=== PATIENT | female | born 1945 | race Caucasian/White ===

== ENCOUNTER → 2019-09-07 | Outpatient (CLI) | payer BC ==
--- NOTE | 2019-09-09 15:59 | KCIC ---
BILATERAL SCREENING MAMMOGRAM, 2-D and 3-D History: Routine screening. Comparison: Bilateral mammogram 10/18/2014. Technique: Routine bilateral digital mammogram views performed. MLO and CC digital tomosynthesis (3D) images obtained with implants displaced. Radiologist reviewed these images on dedicated workstation. Findings: Breast Tissue Density A : The breasts are almost entirely fatty. There are a few benign calcifications bilaterally. There are bilateral retroglandular implants that appear to be different from the prior study implants. There are no dominant masses, suspicious microcalcifications, or architectural distortion. IMPRESSION: No mammographic evidence of malignancy. Recommend routine screening. BI-RADS category 2: Benign findings. The images were reviewed with computer-aided detection. Patient information is entered into reminder system with a target due date for the next screening mammogram. Mammography is the most sensitive method for finding small breast cancers, but it does not detect them all and is not a substitute for careful clinical examination. A negative mammogram does not negate a clinically suspicious finding and should not result in delay in biopsying a clinically suspicious abnormality. "Our facility is accredited by the [employer] Mammography Program." Electronically signed by: Cassius Aguirre MD (09/09/2019 3:56 PM) [facility]
== END | disposition home or self-care (01) ==
LOC: KCIC MAMMO 13:51
PROVIDERS: ATTEND Family Medicine
DX: Z12.31 Encounter for screening mammogram for malignant neoplasm of breast (principal); N64.89 Other specified disorders of breast
CPT/HCPCS: 77063; 77067

== ENCOUNTER → 2019-11-11 | Outpatient (CLI) | payer BC ==
[~2019-11-11] MED LIST: CHOL40003 PO; DOCU-109 PO; HYDR-2145 PO; IOHEXOL 180 MG/ML 10 ML VIAL. ONE; KRIL1CAP23 PO; LEVO25TA4 PO; LINZESS145 MCG PO; METF500T16 PO; PANT40TA77 PO; SIMV20TA18 PO; [UNRECOGNIZED DRUG - OTHER]; methylPREDNISolone ACETATE 40 MG/ML VIAL. ONE; methylPREDNISolone ACETATE 80 MG/ML VIAL. ONE
--- NOTE | 2019-11-11 14:15 | PAIN ---
DATE OF SERVICE: 11/11/2019 INITIAL CONSULTATION FOR PAIN CLINIC CHIEF COMPLAINT: Low back, bilateral lower extremity pain. HISTORY OF PRESENT ILLNESS: This is a 74-year-old female who presents with history of pain in the low back for about a year and year in a couple of months in the low back, bilateral lower extremities, which generally go away on her own with stretching and strengthening, but now has not gone away for about 2-3 months. The patient reports it is increased in the low back, bilateral lower extremities, posterior gluteus, posterior thighs, posterior calf to the ankle, some tingling in the foot more intense on the right side, but present bilaterally. The patient reports some on the right anterior groin as well. The patient describes the pain as constant, shooting, radiating to lower extremities, changes during the day, worse with activity, walking, standing, especially getting up out of a chair, burning and cramping as well as aching in the low back itself. The patient did have an MRI scan of the lumbar spine, which is showing some diffuse spondylosis with no significant disease present at the L5-S1 level with a left lateral recess and mild left-sided neural foraminal narrowing due to generalized disk bulging, eccentric towards the left with some generalized disk bulge at L3-L4 and L4-L5 as well. The patient rates disability from 0-10, 10 being the worst, is an 8 with family home responsibilities, recreation, social activity and occupation, 6 with self-care and 5 with life support activities. The patient has tried chiropractic treatment as well as doing exercise currently. She has physical therapy. The chiropractic is helping, but is not lasting very long. She has taken Advil, which also decreased pain by about 20%. The patient reports it awakens her from sleep at least 2-3 times at night, does not affect her bowel or bladder control, but does affect her ability to walk. She is not using any assistive devices to ambulate, however. The patient reports no loss of motor function, but significant fatigability in the lower extremities, especially on the right side. PAST MEDICAL HISTORY: Significant for type 2 diabetes, hypothyroidism, hypertension, hyperlipidemia, gastroesophageal reflux, irritable bowel syndrome, arthritis, osteopenia, stress incontinence. PREVIOUS SURGERIES: Include appendectomy, cholecystectomy, ankle fracture and foot fracture in 2015. CURRENT MEDICATIONS: Include levothyroxine, simvastatin, pantoprazole, hydrochlorothiazide, Linzess, metformin, probiotics, Colace, vitamins. ALLERGIES: THE PATIENT IS ALLERGIC TO FLAGYL. FAMILY HISTORY: Significant for no major medical problems or conditions that she lists. SOCIAL HISTORY: The patient does not drink alcohol, does not smoke, does not use any illegal, illicit or recreational drugs. She is single. Recently retired and lives locally in [place], [place]. 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 REVIEW OF SYSTEMS: The patient's review of systems is positive for those items mentioned in history of present illness. All systems reviewed and otherwise negative. It is complete, full and well documented on the patient's chart. PHYSICAL EXAMINATION: VITAL SIGNS: The patient's blood pressure 143/74, pulse 85, respirations 16, temperature 97.9 degrees Fahrenheit. Height is 5 feet 2 inches, weight is 194 pounds. GENERAL: The patient is awake, alert, oriented, appropriate, very pleasant demeanor. HEENT: Head shows normocephalic, atraumatic. Extraocular movements are intact and symmetrical. Oral cavity: Mucous membranes moist and pink. Dentition is intact. NECK: Shows anterior throat supple without palpable lymphadenopathy noted. Swallow reflex symmetrical. CHEST: Shows normal on inspection. Breath sounds are clear bilaterally. HEART: Shows S1, S2 clear. No murmurs auscultated. ABDOMEN: Soft, nontender, nondistended. No palpable organomegaly is noted. No rebound or guarding demonstrated. BACK: Shows spine grossly in the midline. Normal appearing thoracic kyphosis and lumbar lordotic curvature. Lumbar paraspinous muscle shows symmetrical on inspection, with palpation shows some moderate tenderness diffusely bilaterally, but only diffusely without significant radiation. The patient has good rotational motion of lumbar spine, both laterally as well as extension and flexion without significant difficulty. No tenderness over the sacrum, sacroiliac region or spinous processes with direct palpation. EXTREMITIES: Lower extremities show deep tendon reflexes at 2+ in the patellar, 1+ tendo-calcaneus tendons. Motor exam is strong with 4 on a scale 5 on the right with dorsiflexion and extension, 5/5 on the left, it is true with quadriceps and hamstring flexion as well. Peripheral pulses are 1+ posterior tibia. No peripheral edema is noted. Lower extremities are warm and dry to touch, equal in color and appearance. Straight leg raise noted to be positive on the right about 40 degrees, decreased with knee flexion, left side is negative. Gaenslen's and Cosmo's maneuvers are negative bilaterally as well. The patient is able to stand, stand on her toes without difficulty or loss of balance, walks with normal appearing gait, does not appear to favor the right or left lower extremity to a significant extent, not using any assistive devices to ambulate. IMPRESSION: 1. This is a 74-year-old female with approximately 1-year history of low back, bilateral lower extremity pain in a radicular fashion. 2. MRI scan of lumbar spine as noted. 3. Arthritis. 4. Hypertension. 5. Diabetes. 6. Hypothyroidism. PLAN: Options were discussed with the patient including conservative medical managements, continued physical therapies as well as interventional techniques and she would like to pursue interventional techniques. We discussed a lumbar epidural steroid injection using description as well as anatomical models to describe the procedure. Risks were then discussed including, but not limited to bleeding, infection, possibility of epidural hematoma, subsequent neurologic compromise, dural puncture, headaches, spinal cord and/or nerve damage, side effects of steroid medication and poor results regarding pain control. The patient understands and wished to proceed. The patient will return to clinic in approximately 2 weeks for followup. She was counseled on return appointment, activity level and side effects to be aware of. DIAGNOSES: Lumbar radiculopathy with lumbar degenerative disk disease and lumbar spondylosis. PROCEDURE: Lumbar epidural steroid injection, translaminar approach at L5-S1 level using C-arm fluoroscopic guidance under sterile prep and drape using local anesthetic. MEDICATION INJECTED: A total of 120 mg Depo-Medrol plus 10 mL of preservative-free normal saline and 2 mL of contrast. CONDITION AT DISCHARGE: Stable. The patient tolerated the procedure well, had no complications. ARANZA GRIER MD DR: KAILYN/sandy JOB#: [id number] / [id number] DOROTHY Lilly
== END ==
LOC: PNCL 09:52
PROVIDERS: ATTEND Anesthesiology
DX: M51.16 Intervertebral disc disorders with radiculopathy, lumbar region (principal); M47.816 Spondylosis without myelopathy or radiculopathy, lumbar region; E11.9 Type 2 diabetes mellitus without complications; E03.9 Hypothyroidism, unspecified; I10 Essential (primary) hypertension; E78.5 Hyperlipidemia, unspecified; K21.9 Gastro-esophageal reflux disease without esophagitis; K58.9 Irritable bowel syndrome, unspecified; Z87.39 Personal history of other diseases of the musculoskeletal system and connective tissue; Z90.49 Acquired absence of other specified parts of digestive tract; Z88.8 Allergy status to other drugs, medicaments and biological substances; Z79.84 Long term (current) use of oral hypoglycemic drugs
CPT/HCPCS: 62323; J1030; J1040; Q9965

== ENCOUNTER → 2019-11-25 | Outpatient (CLI) | payer BC ==
--- NOTE | 2019-11-25 12:59 | PAIN ---
DATE OF SERVICE: 11/25/2019 PROGRESS NOTE FOR PAIN CLINIC DIAGNOSES: Lumbar radiculopathy with lumbar degenerative disk disease and lumbar spondylosis. HISTORY OF PRESENT ILLNESS: The patient is a 74-year-old female, who returns for followup, status post lumbar epidural steroid injection x 1. The patient reports about 100% improvement with her left leg and low back, but only 30% on the right. The patient reports overall she is doing quite a bit better, increasing her activity with greater distance walking, doing household activities, traveling with greater ease and comfort in and out of a car. The patient reports still significantly improved on the left side, but the right side is still with some significant pain in the low back, posterior gluteus, posterior thigh, posterior calf with walking and standing. The patient reports it is better with sitting or lying down, generally does not awaken her from sleep. The patient reports her pain is a 9 on a scale of 10 at its worst over the past week, 6 on average, 4 at its least and is a 4 today. The patient reports it is burning and aching, but on and off in intensity and again only usually with weightbearing and walking. PHYSICAL EXAMINATION: VITAL SIGNS: The patient's blood pressure is 149/89, pulse 80, respirations 18, temperature 98.3 degrees Fahrenheit, weight is 195 pounds. GENERAL: The patient is awake, alert, oriented, appropriate, very pleasant demeanor. HEENT: Head is normocephalic, atraumatic. Extraocular movements are intact and symmetrical. Oral cavity: Mucous membranes moist and pink. Dentition is intact. NECK: Shows anterior throat supple without palpable lymphadenopathy noted. Swallow reflex symmetrical. CHEST: Shows normal on inspection. Breath sounds are clear to auscultation bilaterally. HEART: Shows S1, S2 clear. No murmurs auscultated. ABDOMEN: Soft, nontender, nondistended. No palpable organomegaly is noted. No rebound or guarding demonstrated. BACK: Shows spine grossly in the midline. Normal-appearing thoracic kyphosis and minor flattening of lumbar lordotic curvature. Lumbar paraspinous muscle shows symmetrical on inspection, with palpation shows some moderate tenderness diffusely bilaterally, going diffusely without significant radiation. The patient shows good rotational motion of lumbar spine, both laterally as well as extension and flexion without significant pain as well. EXTREMITIES: Lower extremities show deep tendon reflexes 2+ in the patellar and 1+ tendo-calcaneus tendons. Motor exam is approximately 4 on a scale of 5 on the right and 5/5 on the left. Peripheral pulses are 1+ posterior tibia. No peripheral edema is noted bilaterally. Options were discussed with the patient. The patient's old chart was reviewed as her current medication regimen updated. Current review of systems updated today as well. We will proceed with a second in a series of lumbar epidural steroid injection today with fluoroscopic guidance. Risks were again discussed including but not limited to bleeding, infection, possibility of epidural hematoma, subsequent neurological compromise, dural puncture, headaches, spinal cord and/or nerve damage, side effects of steroid medication and poor results regarding pain control. The patient understands and wished to proceed. The patient will return to the clinic in approximately 2 weeks for followup. She was counseled on return appointment, activity level and side effects to be aware of. DIAGNOSES: Lumbar radiculopathy with lumbar degenerative disk disease and lumbar spondylosis. PROCEDURE: Lumbar epidural steroid injection, translaminar approach at the L5-S1 level using C-arm fluoroscopic guidance under sterile prep and drape using local anesthetic. MEDICATION INJECTED: A total of 120 mg Depo-Medrol plus 10 mL of preservative-free normal saline and 2 mL of contrast. CONDITION AT DISCHARGE: Stable. The patient tolerated procedure well, had no complications. ARANZA GRIER MD DR: KAILYN/sandy JOB#: [id number] / [id number]
== END | disposition home or self-care (01) ==
LOC: PNCL 11:12
PROVIDERS: ATTEND Anesthesiology
DX: M51.16 Intervertebral disc disorders with radiculopathy, lumbar region (principal); M47.26 Other spondylosis with radiculopathy, lumbar region; Z98.890 Other specified postprocedural states; Z88.8 Allergy status to other drugs, medicaments and biological substances
CPT/HCPCS: 62323; J1030; J1040; Q9965

== ENCOUNTER → 2020-01-04 | Outpatient (CLI) | payer BC ==
--- NOTE | 2020-01-04 13:44 | PAIN ---
DATE OF SERVICE: 01/04/2020 PROGRESS NOTE FOR PAIN CLINIC DIAGNOSES: Lumbar radiculopathy with lumbar degenerative disk disease and lumbar spondylosis. HISTORY OF PRESENT ILLNESS: The patient is a 74-year-old female who returns for followup status post lumbar epidural steroid injection x 2. The patient reports approximately 50% improvement after the second injection, near 100% improvement after the first injection; however, she is somewhat disappointed that the pain was not as decreased significantly as it was after the first shot. The patient reports it is dull pain in the low back, right lower extremity, posterior gluteus is the worst, posterior calf into the thigh as well, radiating. The patient reports it is burning and stabbing, becoming more severe, aching in the low back and becoming constant with activity. Initially, she was doing much better with distance walking, doing household activities with greater ease and comfort, traveling with greater ease. The patient reports it does awaken her from sleep, but only about every 6 hours, does not awaken her. The patient reports it is a 9 on a scale of 10 at average, worst and least and is a 9 today. The patient reports no new motor or sensory deficits, no new bowel or bladder incontinence or other complaints. PHYSICAL EXAMINATION: VITAL SIGNS: The patient's blood pressure 142/82, pulse 88, respirations 18, temperature 98.9 degrees Fahrenheit, weight is 195 pounds. GENERAL: The patient is awake, alert, oriented, appropriate, very pleasant demeanor. HEENT: Shows normocephalic, atraumatic. Extraocular movements are intact and symmetrical. Oral cavity: Mucous membranes moist and pink. Dentition is intact. NECK: Shows anterior throat supple without palpable lymphadenopathy noted. Swallow reflex symmetrical. CHEST: Shows normal on inspection. Breath sounds are clear bilaterally. HEART: Shows S1, S2 clear. No murmurs auscultated. ABDOMEN: Soft, nontender, nondistended. BACK: Shows spine grossly in the midline. Normal appearing thoracic kyphosis and minor flattening of lumbar lordotic curvature. Lumbar paraspinous muscle shows symmetrical on inspection, on palpation shows some moderate tenderness diffusely bilaterally going diffusely without radiation. The patient has good rotational motion of the lumbar spine, both laterally as well as extension and flexion without significant pain reported. EXTREMITIES: Lower extremities show deep tendon reflexes 2+ in the patellar, 1+ in the tendo-calcaneus tendons. Motor exam is 4 on a scale of 5 on the right dorsiflexion, extension, 5/5 on the left, but intact. Peripheral pulses are 1+. No peripheral edema bilaterally. Options were discussed with the patient. The patient's old chart was reviewed as her current medication regimen updated. Current review of systems updated today as well. We will proceed with a lumbar epidural steroid injection today as a third in this series with fluoroscopic guidance. Risks were again discussed including, but not limited to bleeding, infection, possibility of epidural hematoma, subsequent neurological compromise, dural puncture, headaches, spinal cord and/or nerve damage, side effects of steroid medication and poor results regarding pain control. The patient understands and wished to proceed. The patient will return to the clinic in approximately 2 weeks for followup, was counseled on return appointment, activity level and side effects to be aware of. DIAGNOSIS: Lumbar radiculopathy with lumbar degenerative disk disease and lumbar spondylosis. PROCEDURE: Lumbar epidural steroid injection, translaminar approach to the L5-S1 level using C-arm fluoroscopic guidance under sterile prep and drape using local anesthetic. MEDICATION INJECTED: A total of 120 mg Depo-Medrol plus 10 mL of preservative-free normal saline and 2 mL of contrast. CONDITION AT DISCHARGE: Stable. The patient tolerated procedure well, had no complications. ARANZA GRIER MD DR: KAILYN/sandy JOB#: [id number] / [id number]
== END ==
LOC: PNCL 11:29
PROVIDERS: ATTEND Anesthesiology
DX: M51.16 Intervertebral disc disorders with radiculopathy, lumbar region (principal); M48.061 Spinal stenosis, lumbar region without neurogenic claudication
CPT/HCPCS: 62323; J1030; J1040; Q9965

== ENCOUNTER → 2020-02-24 | Outpatient (CLI) | payer BC ==
[~2020-02-24] MED LIST changes: -IOHEXOL 180 MG/ML 10 ML VIAL. ONE; -methylPREDNISolone ACETATE 40 MG/ML VIAL. ONE; -methylPREDNISolone ACETATE 80 MG/ML VIAL. ONE
--- NOTE | 2020-02-24 13:58 | RAD ---
DATE: 02/24/2020 12:19 PM EXAM: MAMMO RONNY CHRISTOS RIDERAT HISTORY: 74-year-old woman due for mammographic screening presents with diffuse right greater than left breast pain. She had breast implants replaced in 2013 after initial placement in 1973. She expressed concern over possible implant rupture COMPARISON: 09/07/2019 bilateral mammogram Bilateral CC and MLO views of the breasts were performed. Implant displaced CC and MLO views were also obtained. Bilateral breast tomosynthesis was performed in implant displaced CC and MLO projections. This study was interpreted with the benefit of Computerized Aided Detection (CAD). FINDINGS: Breast Density: FATTY The Breast Parenchyma is primarily fatty replaced. Breast parenchyma level density A. Bilateral retroglandular implants are evident. Technologist reports she is unable to feel the Implants in the breasts. However, there is no collapse of implant or developing bulge in the implant contour to suggest an implant rupture. No new or unexpected extracapsular silicone is present. There is on the MLO view and unchanged 6 mm dense oval mass with circumscribed margins and likely represents an unchanged small globule of silicone or an intramammary lymph node. There are no suspicious findings in either breast and no target for ultrasound given the diffuse nature patient's breasts symptoms.. No suspicious masses, microcalcifications or architectural distortion is present to suggest malignancy in either breast. The visualized axillae are unremarkable. IMPRESSION: No mammographic evidence of malignancy. BI-RADS CATEGORY: 2 BENIGN FINDING(S) RECOMMENDED FOLLOW-UP: 12M 12 MONTH FOLLOW-UP Annual screening mammography is recommended, unless clinically indicated sooner based on symptoms or change in physical exam. PQRS compliance statement: Patient information was entered into a reminder system with a target due date 02/24/2021 for the next mammogram. Mammography is a sensitive method for finding small breast cancers, but it does not detect them all and is not a substitute for careful clinical examination. A negative mammogram does not negate a clinically suspicious finding and should not result in delay in biopsying a clinically suspicious abnormality. "Our facility is accredited by the [employer] Mammography Program."
== END | disposition home or self-care (01) ==
LOC: MAMMO 12:03
PROVIDERS: ATTEND Family Medicine
DX: N64.4 Mastodynia (principal); R92.2 Inconclusive mammogram
CPT/HCPCS: 77066; G0279; 77062